=== PATIENT | male | born 1995 | race Caucasian/White ===

== ENCOUNTER 2018-11-08 14:22 | Emergency (ER) | payer BC ==
[~2018-11-08] VITALS: Ht 170.2 cm; Wt 74.8 kg
[2018-11-08 14:28] VITALS: BP_SYST 118
[2018-11-08 18:05] VITALS: BP_SYST 116
== END 2018-11-08 18:05 | disposition home or self-care (01) ==
LOC: SED 14:22
DX: K40.90 Unilateral inguinal hernia, without obstruction or gangrene, not specified as recurrent (principal)
CPT/HCPCS: 76856-TC; 99284